=== PATIENT | female | born 1995 | race Hispanic/Latino ===

== ENCOUNTER 2022-09-25 11:51 | Inpatient (IN) | payer OTHER ==
[2022-09-25 12:19] VITALS: BMI 30.9
[2022-09-25] MEDS ORDERED: Acetaminophen 500 MG TAB PO PRN (12:24)
[2022-09-25] MEDS ORDERED: Promethazine HCl 25 MG/ML VIAL IM PRN (12:24)
[2022-09-25] MEDS ORDERED: Tranexamic Acid 1,000 MG/10 ML VIAL IVP PRN (12:24)
[2022-09-25] MEDS ORDERED: hydrALAZINE 20 MG/ML VIAL SLOW IVP PRN (12:24)
[2022-09-25] MEDS ORDERED: fentaNYL 50 mcg/mL 1 mL Vial SLOW IVP PRN (12:24)
[2022-09-25] MEDS ORDERED: Methylergonovine 0.2 MG/ML VIAL IM PRN (12:24)
[2022-09-25] MEDS ORDERED: Misoprostol 200 MCG TAB PR PRN (12:24)
[2022-09-25] MEDS ORDERED: Carboprost 250 MCG/ML AMP IM PRN (12:24)
[2022-09-25] MEDS ORDERED: Diphenoxylate HCl/Atropine Tablet PO PRN ×2 (12:24)
[2022-09-25] MEDS ORDERED: Docusate 100 MG CAP PO PRN (12:24)
[2022-09-25] MEDS ORDERED: NS w/ Oxytocin 30 units 500 ML IV SCH (12:30)
[2022-09-25] MEDS: Betamet Acet/Betamet Na Ph 30 MG/5 ML VIAL IM SCH (12:41)
[2022-09-25 13:21] LABS: Hemoglobin 10.5 g/dL (12.0-15.5); Mean Corpuscular HGB CONC 31.3 g/dL (32.0-36.0); Mean Corpuscular Hemoglobin 21.8 pg (27.0-33.0); Mean Corpuscular Volume 69.5 fl (81.6-98.3); Mean Platelet Volume 11.9 fl (7.4-10.4); Platelet Count 296 10x3/uL (150-450); Red Blood Cell (RBC) Count 4.82 10x6/uL (3.90-5.03); White Blood Cell (WBC) Count 7.1 10x3/uL (3.5-10.5)
[2022-09-25 13:52] LABS: ALT (SGPT) 12 U/L (8-55); AST (SGOT) 17 U/L (5-34); Albumin 3.5 g/dL (3.5-5.0); Alkaline Phosphatase 184 U/L (40-110); Anion Gap 14 mmol/L (10-20); BUN (Urea Nitrogen) 8 mg/dL (7.0-18.7); Bilirubin, Total 1.2 mg/dL (0.2-1.2); Calc. Creatinine Clearance 129 mL/min (70-130); Calcium 8.8 mg/dL (7.8-10.44); Carbon Dioxide 20 mmol/L (22-29); Chloride 105 mmol/L (98-107); Estimated GFR 119; Globulin 3.5 g/dL (2.4-3.5); Glucose 85 mg/dL (70-105); Potassium 3.8 mmol/L (3.5-5.1); Sodium 135 mmol/L (136-145)
[2022-09-25 14:08] LABS: HBSAg Index 0.18 S/CO (0-0.99); Hep B Surf Ag - L&D Non-Reactive S/CO (NonReactive); Syphilis Antibody Nonreactive (Nonreactive); Syphilis Antibody Index 0.08 S/CO (<1.00 Non-Reactive)
[2022-09-26] MEDS: Ondansetron PF 4 MG/2 ML Vial IVP PRN ×2 (08:53→23:45)
[2022-09-26] MEDS ORDERED: Ursodiol 300 MG CAP PO SCH (09:45)
[2022-09-26 10:27] LABS: ALT (SGPT) 11 U/L (8-55); AST (SGOT) 16 U/L (5-34); Alkaline Phosphatase 158 U/L (40-110); Anion Gap 16 mmol/L (10-20); BUN (Urea Nitrogen) 6 mg/dL (7.0-18.7); Bilirubin, Total 1.3 mg/dL (0.2-1.2); Calc. Creatinine Clearance 137 mL/min (70-130); Calcium 8.6 mg/dL (7.8-10.44); Carbon Dioxide 17 mmol/L (22-29); Chloride 107 mmol/L (98-107); Estimated GFR 122; Globulin 3.3 g/dL (2.4-3.5); Glucose 113 mg/dL (70-105); Potassium 3.8 mmol/L (3.5-5.1); Protein, Total 6.3 g/dL (6.0-8.3); Sodium 136 mmol/L (136-145)
[2022-09-26] MEDS: Betamet Acet/Betamet Na Ph 30 MG/5 ML VIAL IM SCH (13:07)
[2022-09-26] MEDS: Ursodiol 300 MG CAP PO SCH ×2 (15:56→21:59)
[2022-09-26] MEDS: Lactated Ringer's 1,000 ML IV SCH (21:56)
[2022-09-27] MEDS: Ursodiol 300 MG CAP PO SCH ×3 (09:35→21:22)
[2022-09-27] MEDS: Lactated Ringer's 1,000 ML IV SCH ×2 (19:21→22:10)
[2022-09-28] MEDS: Lactated Ringer's 1,000 ML IV SCH ×2 (05:22→21:04)
[2022-09-28] MEDS: Ursodiol 300 MG CAP PO SCH (20:51)
[2022-09-29] MEDS: Ursodiol 300 MG CAP PO SCH ×3 (08:40→21:11)
[2022-09-30] MEDS: Ursodiol 300 MG CAP PO SCH ×4 (08:33→20:34)
[2022-09-30] MEDS: diphenhydrAMINE 12.5 MG/5 ML UDCUP PO PRN ×2 (11:41→20:34)
[2022-10-01] MEDS ORDERED: Misoprostol 100 MCG TAB ONE (03:57)
[2022-10-01] MEDS ORDERED: Acetaminophen 500 MG TAB PO PRN (04:13)
[2022-10-01] MEDS ORDERED: Zolpidem Tartrate 5 MG TAB PO PRN (04:13)
[2022-10-01] MEDS ORDERED: Lidocaine 1% (PF) 30 ML VIAL SC PRN (04:13)
[2022-10-01] MEDS ORDERED: Butorphanol Tartrate 1 MG/ML VIAL SLOW IVP PRN (04:13)
[2022-10-01] MEDS ORDERED: HYDROcodone/Acetaminophen 5/325 mg Tablet PO PRN ×2 (04:13)
[2022-10-01] MEDS ORDERED: NS w/ Oxytocin 30 units 500 ML IV SCH ×3 (04:13)
[2022-10-01] MEDS ORDERED: Promethazine HCl 25 MG/ML VIAL IM PRN (04:13)
[2022-10-01] MEDS ORDERED: Ibuprofen 800 MG TAB PO PRN (04:13)
[2022-10-01] MEDS ORDERED: Carboprost 250 MCG/ML AMP IM PRN (04:13)
[2022-10-01] MEDS ORDERED: Misoprostol 200 MCG TAB PR PRN (04:13)
[2022-10-01] MEDS ORDERED: Tranexamic Acid 1,000 MG/10 ML VIAL IVP PRN (04:13)
[2022-10-01] MEDS ORDERED: Ondansetron PF 4 MG/2 ML Vial IVP PRN (04:13)
[2022-10-01] MEDS ORDERED: hydrALAZINE 20 MG/ML VIAL SLOW IVP PRN (04:13)
[2022-10-01] MEDS ORDERED: Diphenoxylate HCl/Atropine Tablet PO PRN ×2 (04:13)
[2022-10-01] MEDS ORDERED: fentaNYL 50 mcg/mL 1 mL Vial SLOW IVP PRN (04:13)
[2022-10-01] MEDS ORDERED: Methylergonovine 0.2 MG/ML VIAL IM PRN (04:13)
[2022-10-01 06:54] LABS: Mean Corpuscular HGB CONC 31.3 g/dL (32.0-36.0); Mean Corpuscular Hemoglobin 21.3 pg (27.0-33.0); Mean Corpuscular Volume 68.1 fl (81.6-98.3); Platelet Count 358 10x3/uL (150-450); RBC Distribution Width 14.9 % (11.5-14.5); White Blood Cell (WBC) Count 8.5 10x3/uL (3.5-10.5)
[2022-10-01 07:47] LABS: HBSAg Index 0.17 S/CO (0-0.99); Hep B Surf Ag Non-Reactive S/CO (NonReactive)
[2022-10-01 07:48] LABS: HIV (1/2) Antibody/Antigen Non-Reactive (NonReactive); HIV 1/2 INDEX 0.06 S/CO (<1.00); Syphilis Antibody Nonreactive (Nonreactive); Syphilis Antibody Index 0.06 S/CO (<1.00 Non-Reactive)
[2022-10-01] MEDS: Lactated Ringer's 1,000 ML IV SCH ×4 (18:22→18:42)
[2022-10-01] MEDS: Ursodiol 300 MG CAP PO SCH ×2 (18:22→22:44)
[2022-10-01] MEDS: Misoprostol 100 MCG TAB VAG SCH ×2 (18:23→18:24)
[2022-10-02] MEDS: Ursodiol 300 MG CAP PO SCH ×3 (08:41→22:09)
[2022-10-02] MEDS ORDERED: NS w/ Oxytocin 30 units 500 ML ONE (15:53)
[2022-10-02] MEDS ORDERED: fentaNYL/Ropivacaine Epidural 100 ML ONE (23:28)
[2022-10-03] MEDS ORDERED: diphenhydrAMINE 50 MG/ML VIAL IVP PRN (00:34)
[2022-10-03] MEDS ORDERED: Promethazine HCl 25 MG/ML VIAL IM PRN ×3 (00:34→21:29)
[2022-10-03] MEDS ORDERED: Moisturizing Cream (Eucerin) 113 GM JAR TOP PRN (00:34)
[2022-10-03] MEDS ORDERED: Lactated Ringer's 500 ML IV PRN (00:34)
[2022-10-03] MEDS ORDERED: Naloxone HCl 0.4 mg/ml Vial IVP PRN ×2 (00:34)
[2022-10-03] MEDS ORDERED: Acetaminophen 325 MG TAB PO PRN (00:34)
[2022-10-03] MEDS ORDERED: Ondansetron PF 4 MG/2 ML Vial IVP PRN ×3 (00:34→21:29)
[2022-10-03] MEDS ORDERED: ePHEDrine Sulfate 50 MG/10 ML VIAL SLOW IVP PRN (00:34)
[2022-10-03] MEDS ORDERED: fentaNYL 2 mcg/Ropivacaine 0.2% Epidural 100 ML CADD EPIDURAL SCH (00:45)
[2022-10-03] MEDS ORDERED: Communication Order-Pharmacy FS SCH (00:45)
[2022-10-03] MEDS ORDERED: Misoprostol 200 MCG TAB ONE (01:57)
[2022-10-03] MEDS ORDERED: Methylergonovine 0.2 MG/ML VIAL IM PRN ×2 (05:27→21:29)
[2022-10-03] MEDS ORDERED: hydrALAZINE 20 MG/ML VIAL SLOW IVP PRN ×2 (05:27→21:29)
[2022-10-03] MEDS ORDERED: Diphenoxylate HCl/Atropine Tablet PO PRN ×2 (05:27)
[2022-10-03] MEDS ORDERED: Lidocaine 1% (PF) 30 ML VIAL SC PRN (05:27)
[2022-10-03] MEDS ORDERED: fentaNYL 50 mcg/mL 1 mL Vial SLOW IVP PRN (05:27)
[2022-10-03] MEDS ORDERED: Butorphanol Tartrate 1 MG/ML VIAL SLOW IVP PRN (05:27)
[2022-10-03] MEDS ORDERED: Tranexamic Acid 1,000 MG/10 ML VIAL IVP PRN (05:27)
[2022-10-03] MEDS ORDERED: Acetaminophen 500 MG TAB PO PRN (05:27)
[2022-10-03] MEDS ORDERED: Ibuprofen 800 MG TAB PO PRN ×2 (05:27→19:54)
[2022-10-03] MEDS ORDERED: Carboprost 250 MCG/ML AMP IM PRN (05:27)
[2022-10-03] MEDS ORDERED: HYDROcodone/Acetaminophen 5/325 mg Tablet PO PRN ×4 (05:27→21:29)
[2022-10-03] MEDS ORDERED: Misoprostol 200 MCG TAB PR PRN (05:27)
[2022-10-03] MEDS ORDERED: NS w/ Oxytocin 30 units 500 ML IV SCH ×3 (05:45)
[2022-10-03 05:58] LABS: Hemoglobin 10.3 g/dL (12.0-15.5); Mean Corpuscular HGB CONC 30.7 g/dL (32.0-36.0); Mean Corpuscular Hemoglobin 20.9 pg (27.0-33.0); Mean Platelet Volume 11.1 fl (7.4-10.4); Platelet Count 308 10x3/uL (150-450); Red Blood Cell (RBC) Count 4.93 10x6/uL (3.90-5.03); White Blood Cell (WBC) Count 14.4 10x3/uL (3.5-10.5)
[2022-10-03 07:18] LABS: Syphilis Antibody Nonreactive (Nonreactive); Syphilis Antibody Index 0.07 S/CO (<1.00 Non-Reactive)
[2022-10-03 07:18] LABS: Hep B Surf Ag - L&D Non-Reactive S/CO (NonReactive)
[2022-10-03] MEDS: Lactated Ringer's 1,000 ML IV SCH (17:14)
[2022-10-03] MEDS ORDERED: Zolpidem Tartrate 5 MG TAB PO PRN (21:29)
[2022-10-03] MEDS ORDERED: Lanolin Ointment 7 GM TUBE TOP PRN (21:29)
[2022-10-03] MEDS ORDERED: Boostrix 0.5 ML (Tdap) VIAL (>/=7 yrs of age) IM ONE (21:29)
[2022-10-03] MEDS ORDERED: Varicella virus, LIVE 0.5 ML VIAL SC ONE (21:29)
[2022-10-03] MEDS ORDERED: Bisacodyl 10 MG SUPP PR PRN (21:29)
[2022-10-03] MEDS ORDERED: diphenhydrAMINE 25 MG CAP PO PRN (21:29)
[2022-10-03] MEDS ORDERED: Benzocaine-Menthol 82.5 ML CAN TOP PRN (21:29)
[2022-10-03] MEDS ORDERED: Measles/Mumps/Rubella 10 MCG/0.5 ML VIAL SC ONE (21:29)
[2022-10-03] MEDS ORDERED: Misoprostol 200 MCG TAB VAG PRN (21:29)
[2022-10-03] MEDS ORDERED: Milk Of Magnesia 30 ML UDCUP PO PRN (21:29)
[2022-10-03] MEDS ORDERED: Preparation H Ointment 28 GM TUBE PR PRN (21:29)
[2022-10-03] MEDS: Ibuprofen 800 MG TAB PO SCH (22:03)
[2022-10-04 04:37] VITALS: TEMP 98.1
[2022-10-04 05:29] LABS: Hemoglobin 9.4 g/dL (12.0-15.5); Mean Corpuscular HGB CONC 31.6 g/dL (32.0-36.0); Mean Corpuscular Hemoglobin 21.6 pg (27.0-33.0); Mean Corpuscular Volume 68.3 fl (81.6-98.3); Mean Platelet Volume 11.6 fl (7.4-10.4); Platelet Count 292 10x3/uL (150-450); RBC Distribution Width 15.1 % (11.5-14.5); Red Blood Cell (RBC) Count 4.35 10x6/uL (3.90-5.03); White Blood Cell (WBC) Count 9.6 10x3/uL (3.5-10.5)
[2022-10-04] MEDS: Ibuprofen 800 MG TAB PO SCH (06:21)
[2022-10-04] MEDS ORDERED: Docusate 100 MG CAP PO SCH (09:00)
[2022-10-04] MEDS ORDERED: Prenatal Vitamin 1 TAB PO SCH (09:00)
[2022-10-04] MEDS: Ferrous Sulfate 325 MG TAB PO SCH ×2 (09:04→10:23)
[2022-10-04 09:11] VITALS: BP 111/69
== END 2022-10-04 11:45 | disposition home or self-care (01) | DRG 805 ==
LOC: CSHLD/OP 11:51 → CSHLD 23:00 → OBSVTOIN 23:01 → CSHANTE 09-26 21:18 → CSHLD 10-01 04:20 → CSHANTE 10-01 15:30 → CSHLD 10-02 15:38 → CSHPP 10-03 04:45
PROVIDERS: ADMIT Obstetrics & Gynecology; ATTEND Obstetrics & Gynecology
PROC: 10E0XZZ Delivery of Products of Conception, External Approach (ICD-10-PCS; principal; 2022-10-03)
PROC: 3E0P7VZ Introduction of Hormone into Female Reproductive, Via Natural or Artificial Opening (ICD-10-PCS; 2022-10-03)
PROC: 0HQ9XZZ Repair Perineum Skin, External Approach (ICD-10-PCS; 2022-10-03)
DX: O26.62 Liver and biliary tract disorders in childbirth (principal); K83.1 Obstruction of bile duct; Z37.0 Single live birth; O70.0 First degree perineal laceration during delivery; Z3A.36 36 weeks gestation of pregnancy
CPT/HCPCS: 36415; 51702; 59025; 76819; 80053; 82239; 85027; 86780; 86850; 86900; 86901; 87340; 87389; 99285; J0702; J2405; J2550; Q0163